=== PATIENT | female | born 1975 ===

== ENCOUNTER 2018-02-13 13:23 | Emergency (ER) | payer OTHER ==
[2018-02-13 13:24] VITALS: BMI 24.0
[2018-02-13 13:38] VITALS: TEMP 98
[2018-02-13 14:59] LABS: BASO % 0.7 % (0.0-2.0); EOS # 0.2 K/uL (0.0-0.7); EOS % 3.3 % (0.0-4.0); HEMOGLOBIN 10.5 g/dL (11.0-16.0); LYMPH # 1.2 K/uL (1.0-4.3); LYMPH % 18.5 % (20.0-40.0); MEAN CELL VOLUME 70.7 fL (81.0-99.0); MEAN CORPUSCULAR HEMOGLOBIN 23.6 pg (27.0-31.0); MEAN CORPUSCULAR HGB CONC 33.4 g/dL (33.0-37.0); MEAN PLATELET VOLUME 9.7 fL (7.2-11.7); MONO # 0.6 K/uL (0.0-0.8); MONO % 9.1 % (0.0-10.0); NEUT # 4.6 K/uL (1.8-7.0); NEUT % 68.4 % (50.0-75.0); RBC 4.45 Mil/uL (3.80-5.20); RED CELL DISTRIBUTION WIDTH 20.3 % (11.5-14.5); WHITE BLOOD COUNT 6.7 K/uL (4.8-10.8)
[2018-02-13 15:15] LABS: ALT/SGPT 31 U/L (9-52); AST/SGOT 28 U/L (14-36); BLOOD UREA NITROGEN 15 mg/dL (7-17); CALCIUM 8.6 mg/dl (8.6-10.4); GFR AFRICAN-AMERICAN > 60; GFR NON-AFRICAN AMERICAN > 60; LIPASE 124 U/L (23-300)
[2018-02-13 15:29] LABS: URINE BILIRUBIN NEGATIVE (NEGATIVE); URINE BLOOD 1+ (NEGATIVE); URINE CLARITY Clear (Clear); URINE COLOR Yellow (YELLOW); URINE GLUCOSE (UA) NORMAL (Normal); URINE LEUKOCYTE ESTERASE NEG Leu/uL (Negative); URINE PROTEIN NEGATIVE (NEGATIVE); URINE UROBILINOGEN NORMAL mg/dL (0.2-1.0)
--- NOTE | 2018-02-13 16:26 | C.PDOC ---
History Of Present Illness 42-year-old female, presents to the emergency department with complaints of right upper quadrant abdominal pain x3 days associated with non-bloody/watery diarrhea, and dysuria. Patient denies nausea/vomiting, fevers, chills, shortness of breath or any other associated symptoms. No other complaints at this time, Time Seen by Provider: 02/13/18 13:45 Chief Complaint (Nursing): Abdominal Pain History Per: Patient History/Exam Limitations: no limitations Past Medical History Reviewed: Historical Data, Nursing Documentation, Vital Signs Vital Signs: Last Vital Signs Temp 98 F 02/13/18 13:34 Pulse 65 02/13/18 18:08 Resp 18 02/13/18 18:08 BP 120/77 02/13/18 18:08 Pulse Ox 97 02/13/18 18:08 Family History: States: No Known Family Hx - Social History Hx Alcohol Use: No Hx Substance Use: No - Immunization History Hx Tetanus Toxoid Vaccination: No Hx Influenza Vaccination: No Hx Pneumococcal Vaccination: No Review Of Systems Constitutional: Negative for: Fever Cardiovascular: Negative for: Chest Pain Respiratory: Negative for: Shortness of Breath Gastrointestinal: Positive for: Abdominal Pain, Diarrhea. Negative for: Nausea , Vomiting Musculoskeletal: Negative for: Back Pain Neurological: Negative for: Weakness, Numbness, Headache, Dizziness Physical Exam - Physical Exam Appears: Non-toxic, No Acute Distress Skin: Normal Color, Warm, Dry, No Rash Head: Normacephalic Eye(s): bilateral: PERRL Nose: Normal Oral Mucosa: Moist Lips: Normal Appearing Neck: Normal ROM Chest: Symmetrical Cardiovascular: Rhythm Regular, No Murmur Respiratory: Normal Breath Sounds, No Accessory Muscle Use Gastrointestinal/Abdominal: Soft, Tenderness (RUQ), No Guarding, No Rebound Extremity: Normal ROM, No Deformity, No Swelling Neurological/Psych: Oriented x3, Normal Speech ED Course And Treatment - Laboratory Results Result Diagrams: 02/13/18 14:53 02/13/18 14:53 O2 Sat by Pulse Oximetry: 100 (RA) Pulse Ox Interpretation: Normal Medical Decision Making Medical Decision Making: Impression: abdominal pain and diarrhea Plan: * Bloodwork * Pepcid, Protonix, Toradol, Zofran * UA * US * Gallbladder * Reassess and Disposition * * patient states improvement. Will discharge home to follow up with pmd in 2 days Disposition Counseled Patient/Family Regarding: Studies Performed, Diagnosis, Need For Followup, Rx Given - Disposition Referrals: [facility] [Outside] Disposition: HOME/ ROUTINE Disposition Time: 17:54 Condition: STABLE Additional Instructions: follow up with clinic in 2 days call to make an appointment take medications as prescribed return to ER if symptoms worsens or progress Prescriptions: Acetaminophen/Codeine [Tylenol/Codeine 300 MG/30 MG] 1 tab PO Q6H PRN #12 tab PRN Reason: Pain, Severe (8-10) Naproxen [Naprosyn] 500 mg PO BID PRN #16 tab PRN Reason: Pain, Moderate (4-7) Instructions: Acute Abdomen (Belly Pain), Adult (DC) Forms: Gen Discharge Inst Ukrainian, [employer] (Ukrainian), Work Excuse Print Language: LUXEMBOURGER - Clinical Impression Clinical Impression: Abdominal pain - Scribe Statement The provider has reviewed the documentation as recorded by the Scribe (Jacky Boland) All medical record entries made by the Scribe were at my direction and personally dictated by me. I have reviewed the chart and agree that the record accurately reflects my personal performance of the history, physical exam, medical decision making, and the department course for this patient. I have also personally directed, reviewed, and agree with the discharge instructions and disposition.
--- NOTE | 2018-02-13 16:29 | US ---
HISTORY: Right upper quadrant pain COMPARISON: No prior study available for comparison TECHNIQUE: Sonographic evaluation of the right upper quadrant of the abdomen. FINDINGS: LIVER: Measures 12.65 cm in length. Normal echogenicity of the liver parenchyma. No mass. No intrahepatic bile duct dilatation. GALLBLADDER: Unremarkable. No gallstones. COMMON BILE DUCT: Measures 3.1 mm. No stones. No dilatation. PANCREAS: Unremarkable as visualized. No mass. No ductal dilatation. RIGHT KIDNEY: Measures 10.2 x 4.4 x 4.4cm in length. Normal echogenicity. No calculus, mass, or hydronephrosis. AORTA: No aneurysmal dilatation. IVC: Unremarkable. OTHER FINDINGS: None . IMPRESSION: No acute findings.
[2018-02-13] MEDS ORDERED: Morphine 4 MG/ML VIAL IV STA (16:51)
[2018-02-13] MEDS ORDERED: Morphine 4 MG/ML VIAL ONE (17:04)
[2018-02-13 17:07] VITALS: RESP 18
--- NOTE | 2018-02-13 17:49 | CT ---
PROCEDURE: CT scan abdomen and pelvis dated 02/13/2018 HISTORY: Abdominal pain. COMPARISON: No prior study available comparison. TECHNIQUE: Contiguous axial images of the abdomen and pelvis performed without oral or intravenous contrast material. Additional 2 dimensional sagittal and coronal reformats generated. Radiation dose: Total exam DLP = This CT exam was performed using one or more of the following dose reduction techniques: Automated exposure control, adjustment of the mA and/or kV according to patient size, and/or use of iterative reconstruction technique. FINDINGS: LOWER THORAX: Minor scarring changes seen in the lingular and middle lobe regions. Lung barnes are otherwise clear. No evidence of effusion or basilar pneumothorax. There is a tiny hiatal hernia. Heart size within range of normal. No significant pericardial effusion. LIVER: Liver exhibits normal size measuring approximately 15.2 cm and CC dimension. GALLBLADDER AND BILE DUCTS: Gallbladder appears incompletely distended. No obvious intraluminal gallbladder calculi. PANCREAS: The unenhanced pancreas appears unremarkable without masses collections or calcifications so far as can be seen. Unremarkable. No mass. No ductal dilatation. SPLEEN: Spleen exhibits normal size and attenuation pattern without mass collection or calcification. ADRENALS: The 19 mm elliptical shaped low-attenuation adrenal lesion consistent with adrenal adenoma noted. Right adrenal unremarkable. KIDNEYS AND URETERS: Kidneys demonstrate relatively symmetric size. No evidence of nephrolithiasis or hydronephrosis. BLADDER: Urinary bladder is physiologically distended. No evidence of intraluminal urinary bladder calculi. REPRODUCTIVE: Uterus is of bulky in appearance. Rule out uterine fibroids. In situ Copper-T IUD. APPENDIX: Normal-appearing appendix best seen on coronal image number [id number]. BOWEL: Evaluation of the bowel is limited due to the lack of oral contrast material. Stomach is partially distended with food debris liquid and air. Visualized loops of small bowel exhibit normal contour and caliber. No evidence of acute mechanical small bowel obstruction. Stool and air seen throughout the large bowel. No definitive evidence of abnormal mural wall thickening. PERITONEUM: Unremarkable. No fluid collection. No free air. Small fat containing umbilical hernia. LYMPH NODES: Unremarkable. No enlarged lymph nodes. VASCULATURE: Unremarkable. No aortic aneurysm. BONES: Minimal degenerative spondylosis lower thoracic spine. OTHER FINDINGS: None. IMPRESSION: The small adrenal adenoma. Bulky appearing uterus; rule out uterine fibroids.
[2018-02-13 18:09] VITALS: BP 120/77; PULSE 65
[2018-02-14 17:15] VITALS: O2SAT 100
== END 2018-02-13 18:09 | disposition home or self-care (01) ==
LOC: C.ER 13:23
DX: R10.11 Right upper quadrant pain (principal)
CPT/HCPCS: 74176; 76705; 80053; 81001; 83690; 85025; 96374; 96375; 99285; C9113; J1885; J2270; J2405